=== PATIENT | female | born 1995 | race Caucasian/White ===

== ENCOUNTER 2021-10-01 06:39 | Emergency (ER) | payer OTHER ==
[~2021-10-01] VITALS: Ht 170.2 cm; Wt 54.4 kg
[2021-10-01 06:59] VITALS: BP 107/70
[2021-10-01] MEDS ORDERED: PRED20TA PO (07:15)
[2021-10-01] MEDS ORDERED: KETOROLAC TROMETHAMINE INJ 30 MG/ML VIAL IM ONE (07:30)
== END 2021-10-01 07:26 | disposition home or self-care (01) ==
LOC: ER 06:43
DX: M25.522 Pain in left elbow (principal); M08.00 Unspecified juvenile rheumatoid arthritis of unspecified site